=== PATIENT | female | born 1945 | race Two or more races ===

== ENCOUNTER 2018-01-27 14:31 | Outpatient (CLI) | payer MEDICARE, OTHER ==
--- NOTE | 2018-01-28 09:35 | XRAY Report ---
RIGHT HIP AND PELVIS: 01/27/2018 CLINICAL INDICATION: Stiffness, pain. FINDINGS: Frontal view of the hips and pelvis and frogleg lateral view of the right hip demonstrate severe right hip osteoarthritis, with complete collapse of the superior joint space. There is no evidence of acute fracture or dislocation. Mild left hip osteoarthritis is also noted. IMPRESSION: SEVERE RIGHT HIP OSTEOARTHRITIS. TD: 01/28/2018 09:34
== END 2018-01-27 14:32 | disposition home or self-care (01) ==
LOC: DI.S 14:31
PROVIDERS: ATTEND Internal Medicine
DX: M16.11 Unilateral primary osteoarthritis, right hip (principal)

== ENCOUNTER 2018-12-13 10:15 | Outpatient (CLI) | payer MEDICARE, OTHER ==
--- NOTE | 2018-12-13 17:56 | MRI Report ---
Reason: UNILATERAL PRIMARY OSTEOARTHRITIS,RIGHT HIP Procedure Date: 12/13/2018 Accession Number: [id number] / [id number] Procedure: MRI - Hip RT W/O CPT Code: FULL RESULT: EXAM: RIGHT HIP MRI WITHOUT CONTRAST EXAM DATE: 12/13/2018 11:11 AM. CLINICAL HISTORY: Unilateral primary osteoarthritis, right hip. Hip pain. COMPARISON: Hip with pelvis 2-3 views right 01/27/2018 2:44 PM. TECHNIQUE: Multiplanar, multisequence T1-weighted and fluid-sensitive, small tabcj-au-adiu sequences of the hip and large uaeeu-ef-[id number] sequences of the pelvis without contrast. Other: None. FINDINGS: Bones: No fractures or subluxations. No marrow edema or bone lesions. Right Hip: No acetabular retroversion. Femoral head/neck offset is within normal limits. Small joint effusion. Some debris also seen in the inferior joint. There is "[id number]" appearance with marginal arthrosis, there is a "pincer" contour of the lateral acetabulum. Subjacent marrow edema and subchondral cystic formation also seen. Some degenerative changes of the posterior labrum, no convincing evidence for labral tear, however. The ligamentum teres is intact. Lateral center-edge angle is 40.2 degrees. Other Joints: The visualized lumbar spine, sacroiliac joints, symphysis pubis, and contralateral hip are unremarkable. Musculature: No edema or fatty atrophy. The gluteus medius and minimus tendons are normal. The visualized hamstring tendons are normal. The ischiofemoral space is normal. Pelvic Cavity: The visualized viscera are unremarkable. No lymphadenopathy. No free fluid in the pelvis. Other: The visualized sciatic nerves are unremarkable. No bursitis. The subcutaneous tissues are unremarkable. IMPRESSION: 1. Kellgren Tr grade 4 osteoarthritic changes of the right hip. [facility] MUSCULOSKELETAL RADIOLOGY SECTION
== END 2018-12-13 10:16 | disposition home or self-care (01) ==
LOC: DI 10:15
PROVIDERS: ATTEND Internal Medicine
DX: M16.11 Unilateral primary osteoarthritis, right hip (principal)

== ENCOUNTER 2019-12-29 10:34 | Outpatient (CLI) | payer MEDICARE, OTHER ==
--- NOTE | 2019-12-29 14:02 | XRAY Report ---
Reason: PRE SURGERY EVALUATION,OSTEOPOROSIS OG RIGHT HIP JOINT Procedure Date: 12/29/2019 Accession Number: [id number] / [id number] Procedure: XR - Chest 2 View X-Ray CPT Code: 65547 Final Report FULL RESULT: EXAM: CHEST RADIOGRAPHY 2 VIEWS EXAM DATE: 12/29/2019. CLINICAL HISTORY: Pre-surgery evaluation. COMPARISON: PA and lateral chest done on 02/26/2010. TECHNIQUE: PA and lateral views. FINDINGS: Lungs/Pleura: Normal vasculature. Right lower lung scarring is unchanged. Short vertical linear opacities in the left lower lung. Lungs are otherwise clear. Slight blunting of the right posterior cuts phrenic angle is unchanged, either normal variant or minimal scarring. No pleural fluid or pneumothorax. Mediastinum: Normal cardiac and mediastinal contours. Bones: Degenerative changes of the spine. IMPRESSION: Right lower lung scarring is unchanged from 02/26/2010. New short linear opacities in the left lower lung, small focus of atelectasis or scarring occurring since prior examination. Otherwise within normal limits for age. [facility]
== END 2019-12-29 10:35 | disposition home or self-care (01) ==
LOC: DI 10:34
PROVIDERS: ATTEND Physician Assistant
DX: Z01.810 Encounter for preprocedural cardiovascular examination (principal); J98.4 Other disorders of lung; Z01.818 Encounter for other preprocedural examination; M16.11 Unilateral primary osteoarthritis, right hip
CPT/HCPCS: 71046; 93005

== ENCOUNTER 2023-06-08 14:18 | Outpatient (CLI) | payer MEDICARE, OTHER ==
--- NOTE | 2023-06-09 10:26 | DEXA Report ---
PROCEDURE: Dexa Spine and/or Hip INDICATIONS: POST MENOPAUSAL TECHNIQUE: Dual energy x-ray absorptiometry (DXA) was performed on a [employer] System. Regions measur ed are the AP Spine, femoral neck, and if needed forearm. COMPARISON: None. FINDINGS: Lumbar Spine: Bone Mineral Density 0.837 g/cm/cm, T score -2.9. Osteoporosis Left Femoral Neck: Bone Mineral Density 0.621 g/cm/cm, T score -3.0. Osteoporosis Left Hip: Bone Mineral Density 0.649 g/cm/cm, T score -2.8. Osteoporosis (T score greater or equal to -1.0: NORMAL) (T score from -1.1 to -2.4: OSTEOPENIA) (T score less than or equal to -2.5 to: OSTEOPOROSIS) Impression: By WHO criteria, this patient has osteoporosis. Patients with diagnosis of osteoporosis or osteopenia should have regular bone mineral density assess ment. For those eligible for Medicare, routine testing is allowed once every 2 years. Testing frequ ency can be increased for patients who have rapidly progressing disease or for those who are receivin g medical therapy to restore bone mass. Reviewed by: Heriberto Tinajero MD on 06/09/2023 10:25 AM PDT Approved by: Heriberto Tinajero MD on 06/09/2023 10:25 AM PDT Station ID: [id number]
== END 2023-06-08 14:19 | disposition home or self-care (01) ==
LOC: DI 14:18
PROVIDERS: ATTEND Internal Medicine
DX: Z13.820 Encounter for screening for osteoporosis (principal); M81.0 Age-related osteoporosis without current pathological fracture; Z78.0 Asymptomatic menopausal state

== ENCOUNTER 2023-08-17 08:46 | Outpatient (CLI) | payer MEDICARE, OTHER ==
[2023-08-17 14:24] LABS: BASOPHILS # (AUTO) 0.1 10^3/uL (0.0-0.1); BASOPHILS % (AUTO) 1.3 %; EOSINOPHILS # (AUTO) 0.1 10^3/uL (0.0-0.7); EOSINOPHILS % (AUTO) 1.4 %; HCT - HEMATOCRIT 43.9 % (37.0-47.0); HGB - HEMOGLOBIN 14.1 g/dL (12.0-16.0); LYMPHOCYTES # (AUTO) 2.9 10^3/uL (1.5-3.5); LYMPHOCYTES % (AUTO) 45.8 %; MEAN CORPUSCULAR HEMOGLOBIN 32.3 pg (27.0-31.0); MEAN CORPUSCULAR HGB CONC 32.1 g/dL (32.0-36.0); MEAN CORPUSCULAR VOLUME 100.7 fL (81.0-99.0); MEAN PLATELET VOLUME 10.3 fL (7.9-10.8); MONOCYTES # (AUTO) 0.5 10^3/uL (0.0-1.0); MONOCYTES % (AUTO) 7.2 %; NEUTROPHILS # (AUTO) 2.8 10^3/uL (1.5-6.6); PLT - PLATELET COUNT 232 10^3/uL (130-450); RED BLOOD COUNT 4.36 10^6/uL (4.20-5.40); RED CELL DISTRIBUTION WIDTH 13.5 % (12.0-15.0); WHITE BLOOD COUNT 6.4 x10^3/uL (4.8-10.8)
[2023-08-17 14:48] LABS: ALBUMIN 3.8 g/dL (3.2-5.5); ALBUMIN/GLOBULIN RATIO 1.8 (1.0-2.2); BILIRUBIN,TOTAL 0.7 mg/dL (0.2-1.0); CALCIUM 9.4 mg/dL (8.5-10.3); CREATININE 0.6 mg/dL (0.6-1.3); POTASSIUM 3.8 mmol/L (3.5-4.5); TOTAL PROTEIN 5.9 g/dL (6.4-8.9)
== END 2023-08-17 08:47 | disposition home or self-care (01) ==
LOC: LAB.S 08:46
PROVIDERS: ATTEND Nurse Practitioner
DX: L40.0 Psoriasis vulgaris (principal)
CPT/HCPCS: 36415; 80053; 85025

== ENCOUNTER 2023-09-02 12:00 | Day surgery (SDC) | payer MEDICARE, OTHER ==
[~2023-09-02 12:00] MED LIST: ceFAZolin 2 GM VIAL ONE
[2023-09-02] MEDS ORDERED: LACTATED RINGERS 1,000 ML IV ONE (12:28)
[2023-09-02] MEDS ORDERED: ATROPINE ABBOJECT 1 MG/10 ML SYRINGE IVP PRN (13:29)
[2023-09-02] MEDS ORDERED: METOCLOPRAMIDE 10 MG/2 ML VIAL IVP PRN (13:29)
[2023-09-02] MEDS ORDERED: fentaNYL 100 MCG/2 ML VIAL IVP PRN (13:29)
[2023-09-02] MEDS ORDERED: HYDROmorphone 0.5 MG/0.5 ML SYRINGE IVP PRN (13:29)
[2023-09-02] MEDS ORDERED: NALOXONE 0.4 MG/ML VIAL IVP PRN (13:29)
[2023-09-02] MEDS ORDERED: ePHEDrine 50 MG/ML VIAL IVP PRN (13:29)
[2023-09-02] MEDS ORDERED: MORPHINE 2 MG/ML CARPUJECT IVP PRN (13:29)
[2023-09-02] MEDS ORDERED: ONDANSETRON 4 MG/2 ML VIAL IVP PRN (13:29)
--- NOTE | 2023-09-02 13:29 | ANESTHESIA ---
Pre-Anesthesia VS, & Labs - Diagnosis R inguinal hernia - Procedure open repair R inguinal hernia w/mesh Height: 5 ft 5 in Weight (kg): 50.7 kg Body Mass Index: 18.6 BMI Classification: Normal - NPO >8 hours - Is Patient ?: No - Lab Results Lab results reviewed: Yes Home Medications and Allergies Home Medications: Ambulatory Orders Folic Acid 1 mg PO DAILY 08/30/23 Methotrexate [Methotrexate Sodium] 6 tab PO OAW 08/30/23 Folic Acid 1 mg PO DAILY 08/30/23 Methotrexate [Methotrexate Sodium] 6 tab PO OAW 08/30/23 Allergies/Adverse Reactions: Allergies Allergy/AdvReac Type Severity Reaction Status Date / Time Penicillins Allergy Unknown Verified 09/02/23 12:17 Anes History & Medical History - Anesthetic History Anesthesia Complications: reports: No previous complications, Post-Operative Nausea/Vomiting (with ANGLE and ovarian cystectomy) Family history of Anesthesia Complications: Denies Family history of Malignant Hyperthermia: Denies - Medical History Cardiovascular: reports: None Pulmonary: reports: None Gastrointestinal: reports: None Urinary: reports: None Musculoskeletal: reports: Osteoarthritis Endocrine/Autoimmune: reports: None Skin: reports: Psoriasis History of Cancer?: No - Surgical History Eyes Ears Nose Throat (EENT): reports: Tonsil/Adenoidectomy Gynecologic: reports: Oophrectomy Orthopedic: reports: Hip replacement Exam General: Alert, Oriented x3, Cooperative Dental: WNL Mouth Openin Fingerbreadth Neck Mobility: Normal Mallampati classification: II Thyromental Distance: 4-6 cm Respiratory: Lungs clear, Normal breath sounds, No respiratory distress Cardiovascular: Regular rate Neurological: Normal speech Mental/Cognitive Status: Alert/Oriented X3, Normal for patient Cognitive Status: Within normal limits Plan Anesthesia Type: MAC, Total IV Consent for Procedure(s) Verified and Reviewed: Yes Code Status: Attempt Resuscitation ASA classification: 2-Mild systemic disease Is this case an emergency?: No
[2023-09-02] MEDS ORDERED: LACTATED RINGERS 1,000 ML IV SCH (14:00)
[2023-09-02] MEDS ORDERED: BUPIVACAINE 0.25% PF 10 ML VIAL ONE (14:25)
[2023-09-02] MEDS ORDERED: LIDOCAINE-MPF 1% 30 ML VIAL ONE (14:25)
[2023-09-02] MEDS ORDERED: PROPOFOL 500 MG/50 ML 500 MG/50 ML VIAL ONE (14:40)
[2023-09-02] MEDS ORDERED: PROPOFOL 200 MG/20 ML VIAL IVP ONE (15:06)
[2023-09-02] MEDS ORDERED: LIDOCAINE 1% 50 ML MDV SUBQ ONE (15:10)
[2023-09-02] MEDS ORDERED: BUPIVACAINE 0.25% PF 30 ML VIAL SUBQ ONE (15:11)
[2023-09-02] MEDS ORDERED: LACTATED RINGERS 300 ML IV ONE ×2 (15:53)
[2023-09-02] MEDS ORDERED: ONDANSETRON 4 MG/2 ML VIAL ONE (15:54)
--- NOTE | 2023-09-02 16:05 | OPERATIVE REPORT ---
Operative Report - General Procedure Date: 09/02/23 Planned Procedure: open right inguinal hernia repair with mesh Pre-Op Diagnosis: right inguinal hernia Procedure Performed: open repair right inguinal hernia with mesh Post Op Diagnosis: direct inguinal hernia - Procedure Note Primary Surgeon: elo alejo Anesthesia Technique: Local, MAC Pathology: tissue not sent. Estimated Blood Loss (mL): 2 Drain/Tube Type: Other (none) Indications: painful hernia bulge Findings: as above - Other Other Information/Narrative: The patient was properly notified brought to the operating room and placed in supine position. Monitored anesthesia care was given. Sedation was given. She was prepped and draped in a sterile fashion and given preoperative antibiotics. A 5 cm incision was made in the direction of Percy's lines directly overlying the marked area of the hernia. Dissection proceeded with cutting current. The superficial epigastric vein was identified clamped tied with 3-0 Vicryl and divided. Local anesthetic was given throughout the procedure. Dissection proceeded down to the aponeurosis. Aponeurosis was opened in the direction of its fibers and extended to the external ring. The round ligament was mobilized and brought up. The ilioinguinal nerve was cut at musculature and removed. Preperitoneal adipose tissue was mobilized clamped and tied with 2-0 silk and divided. The round ligament and indirect hernia sac was further mobilized back to the internal ring. It was clamped and suture-ligated with a 2-0 silk. The remainder of the round ligament was removed with cautery. Polypropylene mesh was then cut to size and without tails. It was secured to the pubic tubercle along the shelving border of Poupart's ligament and medially along the musculature fascia of the internal oblique. Multiple interrupted 0 Ethibond sutures were used. The mesh lay in good position without tension. Aponeurosis was closed with a running 2-0 Vicryl suture. Teetee's was closed with interrupted 3-0 Vicryl suture. Buried interrupted subdermal 3-0 Vicryl sutures were then placed. Skin was closed with a running 4-0 Monocryl subcuticular suture. Dressing was applied. She tolerated the procedure very well. The patient was properly notified brought to the operating room and placed in supine position. Monitored anesthesia care was given. Sedation was given. She was prepped and draped in a sterile fashion and given preoperative antibiotics. A 5 cm incision was made in the direction of Percy's lines directly overlying the marked area of the hernia. Dissection proceeded with cutting current. The superficial epigastric vein was identified clamped tied with 3-0 Vicryl and divided. Local anesthetic was given throughout the procedure. Dissection proceeded down to the aponeurosis. Aponeurosis was opened in the direction of its fibers and extended to the external ring. The round ligament was mobilized and brought up. The ilioinguinal nerve was cut at musculature and removed. Preperitoneal adipose tissue was mobilized clamped and tied with 2-0 silk and divided. The round ligament and indirect hernia sac was further mobilized back to the internal ring. It was clamped and suture-ligated with a 2-0 silk. The remainder of the round ligament was removed with cautery. Polypropylene mesh was then cut to size and without tails. It was secured to the pubic tubercle along the shelving border of Poupart's ligament and medially along the musculature fascia of the internal oblique. Multiple interrupted 0 Ethibond sutures were used. The mesh lay in good position without tension. Aponeurosis was closed with a running 2-0 Vicryl suture. Teetee's was closed with interrupted 3-0 Vicryl suture. Buried interrupted subdermal 3-0 Vicryl sutures were then placed. Skin was closed with a running 4-0 Monocryl subcuticular suture. Dressing was applied. She tolerated the procedure very well. Insert inguinal hernia female
--- NOTE | 2023-09-02 16:17 | ANESTHESIA POST OP EVALUATION ---
Anesthesia Post Eval - Post Anesthesia Eval Vitals: Last Vital Signs Temp 36.0 C L 09/02/23 16:02 Pulse 75 09/02/23 16:02 Resp 16 09/02/23 16:02 BP 129/93 H 09/02/23 16:02 Pulse Ox 100 09/02/23 16:02 O2 Flow Rate CV Function Including HR & BP: Stable Pain Control: Satisfactory Nausea & Vomiting: Negative Mental Status: Baseline Respiratory Status: Airway Patent Hydration Status: Satisfactory Anesthesia Complications: None
[2023-09-02 16:21] VITALS: BP 150/79; O2SAT 99
--- NOTE | 2023-09-09 09:32 | HISTORY & PHYSICAL EXAMINATION ---
Chief Complaint - Chief Complaint Chief Complaint: painful right groin bulge History of Present Illness - History Obtained From Records Reviewed: yes History obtained from: pt Exam Limitations: none - History of Present Illness HPI Comment/Other: progressive right inguinal hernia in size and symptoms. presents for repair History - Past Medical History Cardiovascular: reports: None Respiratory: reports: None Endocrine/Autoimmune: reports: None GI: reports: None : reports: None HEENT: reports: Chronic vision loss Psych: reports: None Musculoskeletal: reports: Osteoarthritis Derm: reports: Psoriasis MRSA Hx?: No - Past Surgical History Ortho: reports: Hip replacement /[employer]: reports: Oophrectomy HEENT: reports: Tonsil/Adenoidectomy Meds/Allgy - Home Medications Home Medications: Ambulatory Orders Medication Instructions Recorded Confirmed Folic Acid 1 mg PO DAILY 08/30/23 09/02/23 Methotrexate [Methotrexate Sodium] 6 tab PO OAW 08/30/23 09/02/23 traMADol [Ultram] 50 mg PO Q6H PRN #20 tablet 09/02/23 - Allergies Allergies/Adverse Reactions: Allergies Allergy/AdvReac Type Severity Reaction Status Date / Time Penicillins Allergy Unknown Verified 09/02/23 12:17 Review of Systems - Other Findings Other Findings: 10 pt ros as above otherwise unremarkable Exam - Physical Exam General Appearance: positive: No acute distress, Alert Eyes Bilateral: positive: PERRL, EOMI ENT: positive: No signs of dehydration Neck: positive: No JVD, Trachea midline Respiratory: positive: No respiratory distress, Breath sounds nml Cardiovascular: positive: Regular rate & rhythm Abdomen: positive: Non-tender, Other (right inguinal hernia present) Neurologic/Psychiatric: positive: Oriented x3 Conclusion/Plan - Problem List (1) Inguinal hernia of right side without obstruction or gangrene Conclusion/Plan: plan open repair with mesh. parq held and consent obtained - Lab Results Lab results reviewed: Yes
== END 2023-09-02 12:01 | disposition home or self-care (01) ==
LOC: SDS 12:00
PROVIDERS: ATTEND Surgery
DX: K40.90 Unilateral inguinal hernia, without obstruction or gangrene, not specified as recurrent (principal)
CPT/HCPCS: 49505; C1781; J7120

== ENCOUNTER 2023-12-01 09:02 | Outpatient (CLI) | payer MEDICARE, OTHER ==
[2023-12-01 14:54] LABS: BASOPHILS # (AUTO) 0.1 10^3/uL (0.0-0.1); BASOPHILS % (AUTO) 1.5 %; EOSINOPHILS # (AUTO) 0.1 10^3/uL (0.0-0.7); HCT - HEMATOCRIT 42.6 % (37.0-47.0); HGB - HEMOGLOBIN 13.6 g/dL (12.0-16.0); LYMPHOCYTES % (AUTO) 50.1 %; MEAN CORPUSCULAR HEMOGLOBIN 31.7 pg (27.0-31.0); MEAN CORPUSCULAR HGB CONC 31.9 g/dL (32.0-36.0); MEAN CORPUSCULAR VOLUME 99.3 fL (81.0-99.0); MEAN PLATELET VOLUME 10.2 fL (7.9-10.8); MONOCYTES # (AUTO) 0.5 10^3/uL (0.0-1.0); MONOCYTES % (AUTO) 8.1 %; NEUTROPHILS # (AUTO) 2.3 10^3/uL (1.5-6.6); NEUTROPHILS % (AUTO) 38.1 %; PLT - PLATELET COUNT 236 10^3/uL (130-450); RED BLOOD COUNT 4.29 10^6/uL (4.20-5.40); RED CELL DISTRIBUTION WIDTH 13.3 % (12.0-15.0); WHITE BLOOD COUNT 6.1 x10^3/uL (4.8-10.8)
[2023-12-01 16:52] LABS: ALBUMIN 3.6 g/dL (3.2-5.5); ALBUMIN/GLOBULIN RATIO 1.8 (1.0-2.2); BILIRUBIN,TOTAL 0.7 mg/dL (0.2-1.0); CALCIUM 9.1 mg/dL (8.5-10.3); CREATININE 0.8 mg/dL (0.6-1.3); POTASSIUM 3.9 mmol/L (3.5-4.5); TOTAL PROTEIN 5.6 g/dL (6.4-8.9)
== END 2023-12-01 09:03 | disposition home or self-care (01) ==
LOC: LAB.S 09:02
PROVIDERS: ATTEND Nurse Practitioner
DX: L40.0 Psoriasis vulgaris (principal); L57.0 Actinic keratosis; L65.9 Nonscarring hair loss, unspecified; Z79.899 Other long term (current) drug therapy
CPT/HCPCS: 36415; 80053; 85025

== ENCOUNTER 2024-01-14 08:49 | Outpatient (CLI) | payer MEDICARE, OTHER ==
[2024-01-14 14:38] LABS: BASOPHILS # (AUTO) 0.1 10^3/uL (0.0-0.1); EOSINOPHILS # (AUTO) 0.1 10^3/uL (0.0-0.7); EOSINOPHILS % (AUTO) 1.9 %; HCT - HEMATOCRIT 41.7 % (37.0-47.0); HGB - HEMOGLOBIN 13.1 g/dL (12.0-16.0); LYMPHOCYTES # (AUTO) 2.7 10^3/uL (1.5-3.5); LYMPHOCYTES % (AUTO) 43.7 %; MEAN CORPUSCULAR HGB CONC 31.4 g/dL (32.0-36.0); MEAN PLATELET VOLUME 10.3 fL (7.9-10.8); MONOCYTES # (AUTO) 0.5 10^3/uL (0.0-1.0); MONOCYTES % (AUTO) 7.4 %; NEUTROPHILS # (AUTO) 2.9 10^3/uL (1.5-6.6); NEUTROPHILS % (AUTO) 45.8 %; PLT - PLATELET COUNT 233 10^3/uL (130-450); RED BLOOD COUNT 4.09 10^6/uL (4.20-5.40); RED CELL DISTRIBUTION WIDTH 13.2 % (12.0-15.0); WHITE BLOOD COUNT 6.2 x10^3/uL (4.8-10.8)
[2024-01-14 16:25] LABS: ALBUMIN 3.5 g/dL (3.2-5.5); ALBUMIN/GLOBULIN RATIO 1.6 (1.0-2.2); BILIRUBIN,TOTAL 0.4 mg/dL (0.2-1.0); CALCIUM 9.4 mg/dL (8.5-10.3); CREATININE 0.6 mg/dL (0.6-1.3); TOTAL PROTEIN 5.7 g/dL (6.4-8.9)
== END 2024-01-14 08:50 | disposition home or self-care (01) ==
LOC: LAB.S 08:49
PROVIDERS: ATTEND Nurse Practitioner
DX: L40.0 Psoriasis vulgaris (principal); Z79.899 Other long term (current) drug therapy
CPT/HCPCS: 36415; 80053; 85025

== ENCOUNTER 2024-04-05 08:26 | Outpatient (CLI) | payer MEDICARE, OTHER ==
[2024-04-05 14:39] LABS: BASOPHILS # (AUTO) 0.1 10^3/uL (0.0-0.1); BASOPHILS % (AUTO) 1.3 %; EOSINOPHILS # (AUTO) 0.1 10^3/uL (0.0-0.7); EOSINOPHILS % (AUTO) 1.4 %; HCT - HEMATOCRIT 43.2 % (37.0-47.0); HGB - HEMOGLOBIN 13.6 g/dL (12.0-16.0); LYMPHOCYTES # (AUTO) 3.5 10^3/uL (1.5-3.5); LYMPHOCYTES % (AUTO) 49.9 %; MEAN CORPUSCULAR HEMOGLOBIN 31.9 pg (27.0-31.0); MEAN CORPUSCULAR HGB CONC 31.5 g/dL (32.0-36.0); MEAN CORPUSCULAR VOLUME 101.2 fL (81.0-99.0); MEAN PLATELET VOLUME 10.4 fL (7.9-10.8); MONOCYTES # (AUTO) 0.5 10^3/uL (0.0-1.0); MONOCYTES % (AUTO) 7.6 %; NEUTROPHILS # (AUTO) 2.8 10^3/uL (1.5-6.6); NEUTROPHILS % (AUTO) 39.7 %; PLT - PLATELET COUNT 229 10^3/uL (130-450); RED BLOOD COUNT 4.27 10^6/uL (4.20-5.40); WHITE BLOOD COUNT 6.9 x10^3/uL (4.8-10.8)
[2024-04-05 14:51] LABS: ALBUMIN 3.7 g/dL (3.2-5.5); ALBUMIN/GLOBULIN RATIO 1.8 (1.0-2.2); BILIRUBIN,TOTAL 0.6 mg/dL (0.2-1.0); CALCIUM 9.9 mg/dL (8.5-10.3); CREATININE 0.8 mg/dL (0.6-1.3); POTASSIUM 3.9 mmol/L (3.5-4.5); TOTAL PROTEIN 5.8 g/dL (6.4-8.9)
== END 2024-04-05 08:27 | disposition home or self-care (01) ==
LOC: LAB.S 08:26
PROVIDERS: ATTEND Nurse Practitioner
DX: L57.0 Actinic keratosis (principal); Z79.899 Other long term (current) drug therapy; L40.0 Psoriasis vulgaris; D22.5 Melanocytic nevi of trunk; L85.3 Xerosis cutis
CPT/HCPCS: 36415; 80053; 85025

== ENCOUNTER 2024-07-14 08:21 | Outpatient (CLI) | payer MEDICARE, OTHER ==
[2024-07-14 14:51] LABS: BASOPHILS # (AUTO) 0.1 10^3/uL (0.0-0.1); BASOPHILS % (AUTO) 0.9 %; EOSINOPHILS # (AUTO) 0.1 10^3/uL (0.0-0.7); HCT - HEMATOCRIT 41.8 % (37.0-47.0); HGB - HEMOGLOBIN 13.4 g/dL (12.0-16.0); LYMPHOCYTES # (AUTO) 3.3 10^3/uL (1.5-3.5); LYMPHOCYTES % (AUTO) 47.6 %; MEAN CORPUSCULAR HEMOGLOBIN 31.5 pg (27.0-31.0); MEAN CORPUSCULAR HGB CONC 32.1 g/dL (32.0-36.0); MEAN CORPUSCULAR VOLUME 98.1 fL (81.0-99.0); MEAN PLATELET VOLUME 10.4 fL (7.9-10.8); MONOCYTES # (AUTO) 0.5 10^3/uL (0.0-1.0); MONOCYTES % (AUTO) 7.3 %; NEUTROPHILS % (AUTO) 43.1 %; PLT - PLATELET COUNT 229 10^3/uL (130-450); RED BLOOD COUNT 4.26 10^6/uL (4.20-5.40); RED CELL DISTRIBUTION WIDTH 13.2 % (12.0-15.0); WHITE BLOOD COUNT 6.9 x10^3/uL (4.8-10.8)
[2024-07-14 16:49] LABS: ALBUMIN 3.6 g/dL (3.2-5.5); ALBUMIN/GLOBULIN RATIO 1.6 (1.0-2.2); BILIRUBIN,TOTAL 0.7 mg/dL (0.2-1.0); CALCIUM 9.1 mg/dL (8.5-10.3); CREATININE 0.5 mg/dL (0.6-1.3); POTASSIUM 3.7 mmol/L (3.5-4.5); TOTAL PROTEIN 5.8 g/dL (6.4-8.9)
== END 2024-07-14 08:22 | disposition home or self-care (01) ==
LOC: LAB.S 08:21
PROVIDERS: ATTEND Nurse Practitioner
DX: Z51.81 Encounter for therapeutic drug level monitoring (principal); Z79.899 Other long term (current) drug therapy
CPT/HCPCS: 36415; 80053; 85025